=== PATIENT | male | born 1995 | race American Indian/Alaskan Native ===

== ENCOUNTER 2024-12-22 08:16 | Emergency (ER) | payer SELFPAY ==
[2024-12-22] MEDS ORDERED: Sodium Chloride 0.9% 10 ML Syringe FLUSH PRN (08:52)
[2024-12-22 09:22] LABS: BASOPHILS ABSOLUTE AUTO 0.1 x10-3/uL (0.0-0.3); BASOPHILS PERCENT AUTO 0.7 % (0.3-3.8); EOSINOPHILS ABSOLUTE AUTO 0.3 x10-3/uL (0.0-0.6); EOSINOPHILS PERCENT AUTO 2.5 % (0.1-6.8); HEMATOCRIT 43.8 % (38.3-50.1); HEMOGLOBIN 15.1 g/dL (12.9-17.7); LYMPHOCYTES ABSOLUTE AUTO 2.5 x10-3/uL (0.5-4.5); LYMPHOCYTES PERCENT AUTO 24.7 % (15.8-45.3); MEAN CORPUSCULAR HEMOGLOBIN 28.1 pg (27.0-33.3); MEAN CORPUSCULAR HGB CONC 34.4 g/dL (28.7-35.3); MEAN CORPUSCULAR VOLUME 81.7 fL (80.8-98.7); MEAN PLATELET VOLUME 8.4 fL (6.7-11.0); MONOCYTES ABSOLUTE AUTO 0.8 x10-3/uL (0.0-1.2); NEUTROPHILS ABSOLUTE AUTO 6.6 x10-3/uL (1.7-6.9); NEUTROPHILS PERCENT AUTO 64.1 % (40.3-71.8); PLATELET COUNT,PLT 286 x10(3)uL (117-477); RED BLOOD CELL COUNT 5.36 x10(6)uL (3.90-5.90); RED CELL DISTRIBUTION WIDTH 14.9 % (12.4-15.0); WHITE BLOOD CELL COUNT,WBC 10.2 x10-3/uL (3.2-10.1)
[2024-12-22 09:23] LABS: BLOOD UREA NITROGEN,BUN 10 mg/dL (7-18); BUN/CREATININE RATIO 12.5 (9-20); CALCIUM 8.4 mg/dL (8.6-10.2); CARBON DIOXIDE,CO2 26 mmol/L (21-32); CHLORIDE,CL 104 mmol/L (100-110); CREATININE 0.8 mg/dL (0.70-1.30); ESTIMATED GFR 121 mL/min (>60); GLUCOSE RANDOM 95 mg/dL (80-116); POTASSIUM,K 3.4 mmol/L (3.5-5.3); SODIUM,NA 137 mmol/L (135-145)
[2024-12-22] MEDS: Sodium Chloride 0.9% 1,000 ML IV SCH (09:27)
[2024-12-22] MEDS: LORazepam 2 MG/ML SDV IVPUSH STA (09:28)
[2024-12-22 09:29] LABS: ALANINE AMINOTRANSFERASE,ALT 81 U/L (12-36); ALBUMIN 3.8 g/dL (3.5-5.2); ALKALINE PHOSPHATASE 112 IU/L (56-112); ASPARTATE AMNIOTRANSFERASE,AST 53 IU/L (5-25); BILIRUBIN TOTAL 0.9 mg/dL (0.1-1.3); PROTEIN TOTAL,TP 7.8 g/dL (6.0-8.0); SALICYLATE 0.9 mg/dL (<2.8)
[2024-12-22] MEDS: Prochlorperazine 10 MG/2 ML SDV IVPUSH ONE (09:30)
[2024-12-22 09:36] LABS: TSH ULTRASENSITIVE 1.64 IU/mL (0.36-3.74)
[2024-12-22 09:39] LABS: ACETAMINOPHEN < 2 ug/mL (<2)
[2024-12-22 09:41] LABS: ETHANOL BLOOD MEDICAL < 0.03 % (<0.03)
[2024-12-22 10:08] LABS: AMPHETAMINES SCREEN, URINE POSITIVE (NEGATIVE); BARBITURATE SCREEN,URINE NEGATIVE (NEGATIVE); BENZODIAZEPINES SCREEN,URINE NEGATIVE (NEGATIVE); BUPRENORPHINE SCREEN,URINE NEGATIVE (NEGATIVE); METHADONE SCREEN, URINE NEGATIVE (NEGATIVE); METHAMPHETAMINE SCREEN, URINE POSITIVE (NEGATIVE); OXYCODONE SCREEN,URINE NEGATIVE (NEGATIVE); THC SCREEN,URINE POSITIVE (NEGATIVE)
[2024-12-22] MEDS: Lisinopril 20 MG Tab PO STA (11:24)
[2024-12-22] MEDS: amLODIPine 5 MG Tab PO ONE (11:24)
[2024-12-22] MEDS: Potassium Chloride 20 MEQ Tab.ER PO STA (11:36)
[2024-12-24 01:11] LABS: THYROXINE FREE 1.6 ng/dL (0.9-1.7)
== END 2024-12-22 11:59 | disposition home or self-care (01) ==
LOC: FB.ED 08:16
DX: F15.10 Other stimulant abuse, uncomplicated (principal); F10.10 Alcohol abuse, uncomplicated; I10 Essential (primary) hypertension; F17.200 Nicotine dependence, unspecified, uncomplicated; Z88.1 Allergy status to other antibiotic agents; Z88.0 Allergy status to penicillin
CPT/HCPCS: 80053; 80143; 80179; 80307; 84439; 84443; 85025; 93005; 96361; 96374; 96375; 99285; A9270; J0780; J2060; J7030; 36415; 93010; 99284